=== PATIENT | female | born 2000 | race American Indian/Alaskan Native ===

== ENCOUNTER 2021-10-13 12:05 | Emergency (ER) | payer MEDICAID, OTHER | END 2021-10-13 13:19 | disposition home or self-care (01) | LOC: JP.ED 12:05 | DX: U07.1 COVID-19 (principal) | CPT/HCPCS: 99284; U0002 ==

== ENCOUNTER 2022-03-30 21:17 | Emergency (ER) | payer SELFPAY ==
[2022-03-30 22:33] LABS: CORONAVIRUS COVID-19 NAA NEGATIVE (NEGATIVE)
== END 2022-03-30 23:21 | disposition home or self-care (01) ==
LOC: JP.ED 21:17
DX: B34.9 Viral infection, unspecified (principal); Z20.822 Contact with and (suspected) exposure to COVID-19
CPT/HCPCS: 0241U; 99284

== ENCOUNTER 2022-04-02 23:24 | Emergency (ER) | payer SELFPAY | END 2022-04-03 00:21 | disposition home or self-care (01) | LOC: JP.ED 23:24 | DX: J01.90 Acute sinusitis, unspecified (principal); B96.89 Other specified bacterial agents as the cause of diseases classified elsewhere | CPT/HCPCS: 36415; 85025; 99283 ==

== ENCOUNTER 2023-11-01 15:10 | Emergency (ER) | payer MEDICAID | END 2023-11-01 19:12 | disposition left against medical advice (07) | LOC: JP.ED 15:10 | DX: Z53.21 Procedure and treatment not carried out due to patient leaving prior to being seen by health care provider (principal) ==

== ENCOUNTER 2023-11-02 14:11 | Emergency (ER) | payer MEDICAID ==
[2023-11-02] MEDS: Acetaminophen/oxyCODONE 325-5 MG Tab PO ONE (14:54)
== END 2023-11-02 14:58 | disposition home or self-care (01) ==
LOC: JP.ED 14:11
DX: K04.7 Periapical abscess without sinus (principal)
CPT/HCPCS: 99282; A9270

== ENCOUNTER 2024-03-21 22:06 | Emergency (ER) | payer MEDICAID | END 2024-03-21 23:27 | disposition left against medical advice (07) | LOC: JP.ED 22:06 | DX: Z53.21 Procedure and treatment not carried out due to patient leaving prior to being seen by health care provider (principal) ==

== ENCOUNTER 2025-02-02 13:35 | Emergency (ER) | payer MEDICAID ==
[2025-02-02 14:22] LABS: BASOPHILS ABSOLUTE AUTO 0.09 K/uL (0.00-0.10); BASOPHILS PERCENT AUTO 0.9 % (0.1-1.3); EOSINOPHILS ABSOLUTE AUTO 0.12 K/uL (0.00-0.40); EOSINOPHILS PERCENT AUTO 1.2 % (0.0-5.4); IMMATURE GRAN ABSOLUTE AUTO 0.30 K/uL (0.00-0.23); IMMATURE GRAN PERCENT AUTO 2.9 % (0.0-0.7); LYMPHOCYTES ABSOLUTE AUTO 2.14 K/uL (0.8-3.3); LYMPHOCYTES PERCENT AUTO 20.8 % (11.4-47.7); MONOCYTES ABSOLUTE AUTO 0.91 K/uL (0.20-0.90); MONOCYTES PERCENT AUTO 8.9 % (3.3-12.6); NEUTROPHILS ABSOLUTE AUTO 6.72 K/uL (1.0-7.6); NEUTROPHILS PERCENT AUTO 65.3 % (40.0-78.1); PLATELET COUNT,PLT 335 K/uL (130-375); RED BLOOD CELL COUNT 3.99 M/uL (3.77-5.24); WHITE BLOOD CELL COUNT,WBC 10.3 K/uL (3.2-11.0)
[2025-02-02 14:24] LABS: APPEARANCE,URINE CLEAR (CLEAR); GLUCOSE,URINE NEGATIVE (NEGATIVE); OCCULT BLOOD,URINE NEGATIVE (NEGATIVE)
[2025-02-02 14:34] LABS: SQUAMOUS EPITHELIAL CELLS,UR MANY /HPF; UROTHELIAL CELLS,URINE NOT SEEN /HPF
[2025-02-02 15:07] LABS: A/G RATIO 1.1 (1.2-2.2); ALANINE AMINOTRANSFERASE,ALT 32 U/L (12-78); ASPARTATE AMNIOTRANSFERASE,AST 21 U/L (15-37); BILIRUBIN TOTAL 0.4 mg/dL (0.2-1.0); BLOOD UREA NITROGEN,BUN 10 mg/dL (7-18); CARBON DIOXIDE,CO2 25 mmol/L (21-32); CHLORIDE,CL 103 mmol/L (100-108); CREATININE 0.5 mg/dL (0.6-1.0); EST CRCL DRUG DOSING (CG) 148.53 mL/min; ESTIMATED GFR 133 mL/min (>60); GLUCOSE RANDOM 87 mg/dL (74-106); HCG QUANTITATIVE 90675 mIU/mL (0-6); POTASSIUM,K 3.6 mmol/L (3.6-5.2); PROTEIN TOTAL,TP 7.4 g/dL (6.4-8.2); SODIUM,NA 139 mmol/L (140-148)
== END 2025-02-02 16:40 | disposition home or self-care (01) ==
LOC: JP.ED 13:35
DX: O99.891 Other specified diseases and conditions complicating pregnancy (principal); R10.31 Right lower quadrant pain; Z3A.10 10 weeks gestation of pregnancy; Z86.16 Personal history of COVID-19
CPT/HCPCS: 36415; 76801; 76801-26; 80053; 81001; 83605; 83690; 84702; 85025; 86900; 86901; 99284